=== PATIENT | male | born 1980 | race Caucasian/White ===

== ENCOUNTER 2016-08-06 10:07 | Observation (INO) ==
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
[2016-08-06 10:50] LABS: Hematocrit 52.9 % (37.5-50.1); Hemoglobin 17.7 g/dL (12.9-16.9); Mean Corpuscular HGB Conc 33.5 g/dL (31.6-35.5); Mean Corpuscular Hemoglobin 29.4 pg (28.0-33.3); Mean Corpuscular Volume 87.9 fL (83.0-100.0); Mean Platelet Volume 11.2 fL (9.4-12.4); Platelet Count 236 K/mcL (140-400); Red Blood Count 6.02 M/mcL (4.19-5.50); Red Cell Distribution Width 13.5 % (11.5-14.5)
[2016-08-06 10:53] LABS: Albumin 4.6 g/dL (3.5-5.0); Albumin/Globulin Ratio 1.2 (1.1-2.2); Bilirubin,Total 1.3 mg/dL (0.2-1.2); Calcium 9.5 mg/dL (8.6-10.8); Globulin 3.9 g/dL (2.4-3.5); Potassium 4.8 mEq/L (3.5-4.5); Total Protein 8.5 g/dL (6.0-8.3)
[2016-08-06 10:54] LABS: Acetaminophen < 1.0 mcg/mL (10-30); Ethanol < 10 mg/dL (0-10); Salicylate 1.1 mg/dL (15-30)
[2016-08-06 11:07] LABS: Lymphocytes # 0.7 K/mcL (0.6-4.6)
[2016-08-06 11:08] LABS: Platelet Estimate Normal (Normal); Reactive Lymphocytes Present (Not Present)
[2016-08-06 11:09] LABS: Toxic Vacuolation Present (Not Present)
[2016-08-06] MEDS ORDERED: 0.9 % Sodium Chloride 1,000 ML IVC ONE (11:17)
[2016-08-06] MEDS ORDERED: Aspirin 81 MG TAB.CHEW PO ONE (11:56)
[2016-08-06] MEDS ORDERED: Ibuprofen 400 MG TABLET PO PRN (12:41)
[2016-08-06] MEDS ORDERED: Naloxone 0.4 MG/ML INJ IVP PRN (12:41)
[2016-08-06] MEDS ORDERED: Acetaminophen 325 MG TABLET PO PRN (12:41)
[2016-08-06] MEDS ORDERED: Topiramate 100 MG TABLET PO PRN (12:41)
[2016-08-06] MEDS ORDERED: Clindamycin 600 MG/50 ML 600 MG/50 ML IV.SOLN IVPB ONE (12:41)
[2016-08-06] MEDS ORDERED: Ondansetron ODT 4 MG TAB.RAPDIS SL PRN (12:41)
[2016-08-06] MEDS: 0.9 % Sodium Chloride 1,000 ML IVC SCH ×4 (13:08→22:59)
[2016-08-06] MEDS ORDERED: Vancomycin 1,500 MG in D5% in Water 250 ML IVPB ONE (14:00)
[2016-08-06] MEDS ORDERED: Nitroglycerin 0.4 MG TAB.SUBL SL PRN (16:28)
[2016-08-06] MEDS: Nicotine 21 MG PATCH.TD24 TD SCH (17:03)
--- NOTE | 2016-08-06 20:08 | Internal Med History&Physical ---
Date of Encounter: 08/06/16 Time of Encounter: 19:20 Assessment and Plan (1) Drug overdose Current visit: Yes Status: Acute Appears improved from emergency room status. We will monitor for signs of withdrawal. Qualifiers: Encounter type: initial encounter Injury intent: accidental or unintentional Qualified Code(s): T50.901A - Poisoning by unspecified drugs, medicaments and biological substances, accidental (unintentional), initial encounter (2) Acute renal insufficiency Current visit: Yes Status: Acute We will give IV fluids and recheck labs in a.m. (3) Hepatitis C Current visit: Yes Status: Chronic We will recheck labs in a.m. Qualifiers: Viral hepatitis chronicity: chronic Hepatic coma status: without hepatic coma Qualified Code(s): B18.2 - Chronic viral hepatitis C (4) Left leg weakness Current visit: Yes Status: Acute We will reexamine in a.m. He may need imaging of LS spinal cord. (5) Leukocytosis Current visit: Yes Status: Acute Etiology not obvious. Possible partly due to stress reaction. He has been started on IV clindamycin. Will recheck labs in a.m. Qualifiers: Leukocytosis type: bandemia Qualified Code(s): D72.825 - Bandemia Internal Medicine - H&P: HPI Chief complaint: Heroin overdose, leukocytosis Admitted From: Home Plans for Post Hospital Care: Home History of present illness: Mr. Buckner is a 35 year old male who was brought to the hospital by squad after receiving Narcan by law enforcement when he was found unresponsive in the doorway of his house. His history in the emergency room seemed to vary but he admitted he been using heroin IV. He admitted in emergency room he had used his foot for injection but at the present time he states he only used his right forearm. He was found to have significant leukocytosis with left shift. He was admitted to [facility] [place] floor for ongoing care needs. He states he has used heroin 3 times since 06/29/2016. He states he took 2 Percocet yesterday. He states he was diagnosed proximate 2011 with hepatitis C but has not received treatment. He states he has tested negative for HIV. Denies high risk behaviors for HIV. Reports having night sweats for approximately 2-1/2 weeks. He denies significant pain at the present time. He reports he was stung by a wasp on his right temporal area the evening of August 04. He had an episode of lightheadedness and syncope with possible seizure activity after the sting. He did not seek medical attention at the time. He reports he was found in a "contorted position" when he was discovered from his heroin injection earlier today. He reports there is a numbness sensation in his left leg which seems to have varied in extent over the hours since being seen in emergency room with some initial worsening but now improvement. He states his left leg was normal yesterday. He denies other trauma. Past Med Surg Social Fam HX - Past Medical History Medical history: COPD, hepatitis, migraine Psychiatric history: no psych history - Past Surgical History Surgical History: other - Social History Smoking Status: Current every day smoker Packs per day: 1 Smokeless Tobacco Status: No Alcohol use: rarely Drug use: none Internal Medicine - H&P: Meds Topiramate [Topamax] 100 mg PO BID 11/23/14 [History] Allergies codeine Allergy (Verified 08/06/16 10:17) Rash gabapentin Allergy (Verified 09/19/15 12:32) See Comments stroke like sypmtoms All Systems PM: A 10-system review of systems was performed and is negative for pertinent findings except as documented above in the HPI. Review of systems: Gen.: He states his weight has increased approximately 50 pounds in the past few months since he has used fewer illicit drugs Cardiovascular: He denies NE hypertension heart failure angina DVT or pulmonary embolus Respiratory: He has smoked since age 26 up to 3 packs per day. He has not been diagnosed with chronic lung disease GI: He has had cholecystectomy. He has been diagnosed with hepatitis C. He denies disorders of his liver or exocrine pancreas otherwise : He denies hematuria dysuria or kidney stones Neurologic: He had a syncopal episode with possible seizure evening of August 04. He denies previous strokes or other syncopal episodes. Endocrine: Denies diabetes thyroid disease or hyperlipidemia Hematology/oncology: He denies blood disorders cancers or anemia Psychiatric: He claims he has anxiety but denies depression or other mental health issues Musk skeletal: He states he has mild arthritis in his left knee. - Constitutional Vitals: Temp Pulse Resp BP Pulse Ox 99 F 95 16 114/77 99 08/06/16 18:30 08/06/16 18:30 08/06/16 18:30 08/06/16 18:30 08/06/16 18:30 Exam: Gen.: He is a well-developed well-nourished male who appears in no acute distress HEENT: Head is atraumatic normocephalic. Eyes: EOMI. There is no scleral icterus. Mouth: Mucosa is moist. He is edentulous Neck: Supple and nontender. There is no thyromegaly or adenopathy noted. Heart: Regular with rate approximately 88/m. No murmurs or gallops are heard Lungs: No wheezes or crackles are heard. Abdomen: Soft and nontender. No masses or guarding are noted. Extremities: There is no cyanosis edema clubbing noted. Dorsalis pedis and posttibial pulses 1-2 over 2 bilaterally. Neurologic: Mental status: He is talkative and seems to be a reliable historian. Cranial nerves: Smile is symmetric. Forehead wrinkles bilaterally. Tongue protrudes midline. EOMI. Motor: There is no pronator drift. Rapid finger movements are intact and symmetric on his hands. He has symmetric flexion and extension strength against resistance at the wrist and elbows. He has normal muscle tone on his right leg. The left leg shows impaired dorsiflexion and plantar flexion strength against resistance of the ankle. There is decreased strength on flexion and extension of the knee against resistance. Babinski testing is negative bilaterally. He states he has decreased sensation to light touch in his left leg. Cerebellar: Finger to nose is intact bilaterally. Skin: Warm and dry. No rashes are noted. Internal Med - H&P Results - Labs CBC & Chem 7: 08/06/16 10:25 08/06/16 10:25 Labs: Cardiac Enzymes 08/06/16 Range/Units 15:51 Troponin I 0.08 H* (0-0.03) ng/mL
[2016-08-06] MEDS: Lactobacillus 1 EACH CAP.SPRINK PO SCH (21:41)
[2016-08-07] MEDS: 0.9 % Sodium Chloride 1,000 ML IVC SCH ×2 (01:25→18:52)
[2016-08-07] MEDS: Clindamycin 600 MG/50 ML 600 MG/50 ML IV.SOLN IVPB SCH ×3 (01:26→18:10)
[2016-08-07 07:51] LABS: Basophils % 0.5 %; Eosinophils # 0.3 K/mcL (0.0-0.6); Eosinophils % 3.2 %; Hematocrit 38.9 % (37.5-50.1); Hemoglobin 13.6 g/dL (12.9-16.9); Immature Granulocytes % 0.2 % (0-4); Lymphocytes % 34.7 %; Mean Corpuscular Hemoglobin 29.4 pg (28.0-33.3); Mean Platelet Volume 11.2 fL (9.4-12.4); Monocytes # 0.7 K/mcL (0.0-1.3); Monocytes % 8.6 %; Neutrophils # 4.5 K/mcL (1.6-8.9); Platelet Count 134 K/mcL (140-400); Red Blood Count 4.63 M/mcL (4.19-5.50); Red Cell Distribution Width 13.1 % (11.5-14.5); Segmented Neutrophils % 52.8 %
[2016-08-07 09:47] LABS: Alanine Aminotransferase 170 Units/L (0-55); Albumin 3.3 g/dL (3.5-5.0); Albumin/Globulin Ratio 1.3 (1.1-2.2); Alkaline Phosphatase 119 Units/L (38-126); Aspartate Amino Transferase 129 Units/L (5-34); BUN/Creatinine Ratio 16 (6-26); Bilirubin,Total 0.4 mg/dL (0.2-1.2); Blood Urea Nitrogen 15 mg/dL (8-26); Calcium 8.3 mg/dL (8.6-10.8); Carbon Dioxide 22 mEq/L (19-29); Chloride 107 mEq/L (98-109); Globulin 2.5 g/dL (2.4-3.5); Glucose 74 mg/dL (70-99); Osmolality,Calculated 285 (280-300); Potassium 3.4 mEq/L (3.5-4.5); Sodium 138 mEq/L (136-145); Total Protein 5.8 g/dL (6.0-8.3); eGFR For African Americans > 60 (> 60); eGFR For Non-African Americans > 60 (> 60)
[2016-08-07 10:08] LABS: Thyroid Stimulating Hormone 1.292 mcIU/mL (0.350-4.840)
[2016-08-07] MEDS: Lactobacillus 1 EACH CAP.SPRINK PO SCH ×2 (10:19→22:50)
[2016-08-07] MEDS: Nicotine 21 MG PATCH.TD24 TD SCH (10:28)
--- NOTE | 2016-08-07 13:02 | Electrocardiograph Report ---
[place] [address] Test Date: 2016-08-06 Pat Name: Abdi Buckner Department: [id number] Room: [facility] Gender: M [employer] Operations Analyst: [id number] : 1980 Requested By: Kylee Latif Order Number: [id number] Reading MD: Caleb Pleitez MD Measurements Intervals [place] Rate: 128 P: 73 WI: 145 QRS: 9 QRSD: 98 T: 71 QT: 311 QTc: 387 Interpretive Statements SINUS TACHYCARDIA Electronically Signed On 08-07-2016 13:01:31 EDT by Caleb Pleitez MD
--- NOTE | 2016-08-07 17:34 | Internal Med Progress Note ---
Date of Encounter: 08/07/16 Time of Encounter: 13:45 - Assessment and plan (1) Drug overdose Current Visit: Yes Status: Acute Assessment and plan: August 07. He does not appear to be having withdrawal. We will continue to monitor. Qualifiers: Encounter type: initial encounter Injury intent: accidental or unintentional Qualified Code(s): T50.901A - Poisoning by unspecified drugs, medicaments and biological substances, accidental (unintentional), initial encounter (2) Acute renal insufficiency Current Visit: Yes Status: Acute Assessment and plan: August 07. Resolved, BUN and creatinine are now 15 and 0.91 respectively with estimated GFR greater than 60. Will not workup or treat further. (3) Hepatitis C Current Visit: Yes Status: Chronic Qualifiers: Viral hepatitis chronicity: chronic Hepatic coma status: without hepatic coma Qualified Code(s): B18.2 - Chronic viral hepatitis C (4) Left leg weakness Current Visit: Yes Status: Acute Assessment and plan: August 07. We will send for LS-spine MRI (5) Leukocytosis Current Visit: Yes Status: Acute Assessment and plan: August 07. Now resolved with WBC 8.5. Left shift of differential has resolved also. Qualifiers: Leukocytosis type: bandemia Qualified Code(s): D72.825 - Bandemia - Subjective Interval history: August 07. He has no new complaints. He reports his left foot is still numb. - Constitutional Vitals: Temp Pulse Resp BP Pulse Ox 98.6 F 88 14 115/75 99 08/07/16 14:00 08/07/16 14:00 08/07/16 14:00 08/07/16 14:00 08/07/16 14:00 Exam: He has normal sensation to light touch of his left calf but diminished in the upper ankle area and distally. There is still significant impairment of strength on ankle flexion and extension strength. His patella DTRs are symmetric and normal. He has diminished bilateral Achilles reflex. I reviewed his medications and lab results. Internal Medicine: Result - Labs CBC & Chem 7: 08/07/16 07:31 08/07/16 07:31 Labs: Short CBC 08/07/16 Range/Units 07:31 WBC 8.5 D (4.3-11.1) K/mcL Hgb 13.6 D (12.9-16.9) g/dL Hct 38.9 (37.5-50.1) % Plt Count 134 L (140-400) K/mcL Neutrophils # 4.5 (1.6-8.9) K/mcL BMP 08/07/16 07:31 Sodium 138 Potassium 3.4 L D Chloride 107 Carbon Dioxide 22 BUN 15 Creatinine 0.91 D Glucose 74 Calcium 8.3 L Liver Function 08/07/16 Range/Units 07:31 Total Bilirubin 0.4 (0.2-1.2) mg/dL AST 129 H (5-34) Units/L ALT 170 H (0-55) Units/L Alkaline Phosphatase 119 (38-126) Units/L Albumin 3.3 L D (3.5-5.0) g/dL - Impressions Impressions Foot X-Ray 08/07/16 10:30 IMPRESSION: Normal left foot radiographs D/ / Cody Loredo MD / Cody Loredo MD Interpreting Provider: Cody Loredo MD Lumbar Spine MRI 08/07/16 14:02 IMPRESSION: 1. No acute abnormality of the lumbar spine. 2. Mild L3-4 and L4-5 degenerative disc disease with posterior annular fissuring. 3. Mild L4-5 spinal canal stenosis secondary to broad-based posterior disc protrusion. 4. No neural foraminal narrowing. D/ / Balwinder Brunson MD / Balwinder Brunson MD Interpreting Provider: Balwinder Brunson MD Consult Discharge Plan - Plan Referrals: NO,PCP [Primary Care Provider] - 1 week
[2016-08-08] MEDS: Clindamycin 600 MG/50 ML 600 MG/50 ML IV.SOLN IVPB SCH ×2 (03:25→08:21)
[2016-08-08 05:54] LABS: Basophils % 0.7 %; Eosinophils # 0.3 K/mcL (0.0-0.6); Eosinophils % 5.1 %; Hemoglobin 13.3 g/dL (12.9-16.9); Immature Granulocytes % 0.2 % (0-4); Lymphocytes # 2.3 K/mcL (0.6-4.6); Lymphocytes % 39.6 %; Mean Corpuscular HGB Conc 34.1 g/dL (31.6-35.5); Mean Corpuscular Hemoglobin 29.1 pg (28.0-33.3); Mean Corpuscular Volume 85.3 fL (83.0-100.0); Mean Platelet Volume 11.2 fL (9.4-12.4); Monocytes # 0.5 K/mcL (0.0-1.3); Monocytes % 7.7 %; Neutrophils # 2.8 K/mcL (1.6-8.9); Platelet Count 131 K/mcL (140-400); Red Blood Count 4.57 M/mcL (4.19-5.50); Red Cell Distribution Width 13.5 % (11.5-14.5); Segmented Neutrophils % 46.7 %
[2016-08-08 06:14] LABS: Alanine Aminotransferase 203 Units/L (0-55); Albumin 3.1 g/dL (3.5-5.0); Albumin/Globulin Ratio 1.2 (1.1-2.2); Alkaline Phosphatase 101 Units/L (38-126); Aspartate Amino Transferase 117 Units/L (5-34); BUN/Creatinine Ratio 9 (6-26); Bilirubin,Total 0.4 mg/dL (0.2-1.2); Blood Urea Nitrogen 7 mg/dL (8-26); Calcium 8.6 mg/dL (8.6-10.8); Carbon Dioxide 20 mEq/L (19-29); Chloride 111 mEq/L (98-109); Globulin 2.6 g/dL (2.4-3.5); Glucose 98 mg/dL (70-99); Osmolality,Calculated 288 (280-300); Potassium 3.8 mEq/L (3.5-4.5); Sodium 140 mEq/L (136-145); Total Protein 5.7 g/dL (6.0-8.3); eGFR For African Americans > 60 (> 60); eGFR For Non-African Americans > 60 (> 60)
[2016-08-08 06:29] VITALS: BP 106/68
[2016-08-08] MEDS: Nicotine 21 MG PATCH.TD24 TD SCH (08:20)
[2016-08-08] MEDS: Lactobacillus 1 EACH CAP.SPRINK PO SCH (08:21)
--- NOTE | 2016-08-08 09:32 | Discharge Summary ---
Date of Encounter: 08/08/16 Time of Encounter: 09:20 - Discharge Diagnosis (1) Drug overdose Priority: Primary Status: Acute Qualifiers: Encounter type: initial encounter Injury intent: accidental or unintentional Qualified Code(s): T50.901A - Poisoning by unspecified drugs, medicaments and biological substances, accidental (unintentional), initial encounter (2) Acute renal insufficiency Priority: Secondary Status: Resolved (3) Hepatitis C Priority: Secondary Status: Chronic Qualifiers: Viral hepatitis chronicity: chronic Hepatic coma status: without hepatic coma Qualified Code(s): B18.2 - Chronic viral hepatitis C (4) Left leg weakness Priority: Secondary Status: Acute (5) Leukocytosis Priority: Secondary Status: Resolved Qualifiers: Leukocytosis type: bandemia Qualified Code(s): D72.825 - Bandemia - Discharge Medications Home Medications: Topiramate [Topamax] 100 mg PO BID 11/23/14 [History] Allergies/Adverse Reactions: Allergies bee venom protein (honey bee) Allergy (Verified 08/07/16 03:50) Seizure codeine Allergy (Verified 08/06/16 10:17) Rash gabapentin Allergy (Verified 09/19/15 12:32) See Comments stroke like sypmtoms Procedures/tests Complete & Pending: Procedures Performed prior 72 hours Category Date Time Status MR lumbar spine wo/w con [MR] Routine MRI 08/07/16 14:02 Completed Date of admission: 08/06/16 12:04 Primary care physician: PCP NO - Patient Status Disposition: Home, Self-Care Condition: Fair Functional capacity at discharge: independent ambulation Overall status at discharge: patient is progressing back to baseline - Discharge Instructions Follow Up With: NO,PCP [Primary Care Provider] - 1 week - Diet and Activity Activity: resume usual activities as tolerated Diet: advance to your usual diet Hospital course: Mr. Buckner is a 35 year old male who was brought to the hospital by squad after receiving Narcan by law enforcement when he was found unresponsive in the doorway of his house. His history in the emergency room seemed to vary but he admitted he been using heroin IV. He admitted in emergency room he had used his foot for injection but at the present time he states he only used his right forearm. He was found to have significant leukocytosis with left shift. He was admitted to [facility] for ongoing care needs. Initial orders were written by the emergency room physician. I saw him on August 06 and performed a history and physical. He exhibited no signs of drug withdrawal during his hospital stay. IV fluids were given and his renal insufficiency resolved with BUN and creatinine being 7 and 0.81 respectively on the day of discharge. His leukocytosis and left shift resolved. He had improvement in his LFTs but there was persistent elevation of transaminases on the day of discharge which I thought was possibly due to hepatitis C. I recommended he follow-up with his PCP and discuss treatment for hepatitis C There was persistent weakness and complaints of numbness of his left lower leg on August 07. I sent him for an MRI of the LS spine. No significant pathology was seen. There was noticeable improvement in his ankle movement on August 08. I felt he was stable for discharge home on August 08. He will follow with his PCP within one week. I encouraged him to abstain from all illicit drug use. - Time Spent with Patient Total time spent providing and/or coordinating discharge services: - Constitutional Vitals: Temp Pulse Resp BP Pulse Ox 98.7 F 71 16 106/68 98 08/08/16 06:26 08/08/16 06:26 08/08/16 06:26 08/08/16 06:26 08/08/16 06:26
== END 2016-08-08 10:16 | disposition home or self-care (01) ==
LOC: EMEROOPIK 10:07 → INPPIK 10:07
PROVIDERS: ADMIT Internal Medicine; ATTEND Internal Medicine